=== PATIENT | female | born 1975 | race Hispanic/Latino ===

== ENCOUNTER 2023-12-29 07:05 | Day surgery (SDC) | payer BC ==
[2023-12-29] VITALS (11 sets, daily range): BP systolic 145–172; BP diastolic 81–98; PULSE 60–80; RESP 14–16; TEMP 97–97.3
[~2023-12-29] VITALS: Ht 160 cm; Wt 70.3 kg
[~2023-12-29 07:05] MED LIST: 0.9%NACL 1000ML 1,000 ML IV ONE; AMLO-258 PO
[2023-12-29] MEDS ORDERED: proPOFol 10 MG/ML 20ML VIAL IV ONE (08:59)
[2023-12-29] MEDS ORDERED: ESOM40CA PO (10:21)
== END 2023-12-29 10:38 | disposition home or self-care (01) ==
LOC: DAH 07:05 → ENDO 07:05
PROVIDERS: ATTEND Internal Medicine
DX: R10.9 Unspecified abdominal pain (principal); K29.80 Duodenitis without bleeding; K29.70 Gastritis, unspecified, without bleeding; K20.90 Esophagitis, unspecified without bleeding; B96.81 Helicobacter pylori [H. pylori] as the cause of diseases classified elsewhere; K64.1 Second degree hemorrhoids; K64.4 Residual hemorrhoidal skin tags; K57.30 Diverticulosis of large intestine without perforation or abscess without bleeding; K44.9 Diaphragmatic hernia without obstruction or gangrene; K22.2 Esophageal obstruction; K31.89 Other diseases of stomach and duodenum; Z79.899 Other long term (current) drug therapy
CPT/HCPCS: 81025; 45378; 43239; J7030 ×2; J2704; A4620; A4215 ×2; A4223; A4222; A4221; A4663; A4606; J3490